=== PATIENT | female | born 1975 | race Caucasian/White ===

== ENCOUNTER 2017-02-13 05:42 | Emergency (ER) | payer MEDICAID, OTHER ==
[~2017-02-13] VITALS: Ht 157.5 cm; Wt 85.8 kg
[~2017-02-13 05:42] MED LIST: CALC600T5 PO; IBUP-1542 PO; METF500T3 PO; PREN1TAB62 PO
[2017-02-13 05:46] VITALS: Ht 157.5 cm; Wt 85.8 kg
[2017-02-13] MEDS ORDERED: ONDANSETRON 4 MG INJ IV STA (06:11)
[2017-02-13] MEDS ORDERED: FAMOTIDINE 20 MG TAB PO STA (06:11)
[2017-02-13] MEDS ORDERED: morphine 4 MG/ML VIAL IV STA (06:11)
--- NOTE | 2017-02-13 06:24 | ERD ---
ER Documentation Chief Complaint Chief Complaint RUQ pain radiating to back since 02/12/17 2200 HPI This is a 41-year-old female who presents the emergency department today complaining of upper abdominal pain that goes around her back and nausea that started 1030 last night. Patient states this is happened to her one time in the past back in March when she was with her child. Denies any fevers or chills. She has not taken any medication for the pain. ROS All systems reviewed and are negative except as per history of present illness. Medications Home Meds Active Scripts Famotidine* (Pepcid*) 20 Mg Tablet, 20 MG PO BID for 10 Days, TAB Prov:EVIE MEDINA PA-C 02/13/17 Ondansetron Hcl* (Zofran*) 4 Mg Tablet, 4 MG PO Q6H for NAUSEA AND/OR VOMITING, #30 TAB Prov:EVIE MEDINA PA-C 02/13/17 Naproxen* (Naprosyn*) 500 Mg Tablet, 500 MG PO BID Y for PAIN AND/OR INFLAMMATION, #30 TAB Prov:EVIE MEDINA PA-C 02/13/17 Hydrocodone/Acetaminophen ([place] 5-325 Tablet) 1 Each Tablet, 1 TAB PO Q6H Y for PAIN, #10 TAB Prov:EVIE MEDINA PA-C 02/13/17 Metformin* (Glucophage* XR) 500 Mg Tab.sr.24h, 500 MG PO BID WITH MEALS, #120 3 Refills Prov:CATALINA CORDERO MD 03/22/16 Ibuprofen* (Ibuprofen*) 600 Mg Tablet, 600 MG PO Q6, #20 TAB 0 Refills Prov:CATALINA CORDERO MD 03/22/16 Reported Medications Calcium Carbonate (CALCIUM) 600 Mg Tablet, 600 MG PO, TAB 03/19/16 Vit-Iron Fumarate-FA ( Vitamin Tablet) 1 Each Tablet, 1 TAB PO DAILY, TAB 03/19/16 Allergies Allergies: Coded Allergies: No Known Allergy (Unverified , 02/13/17) Physical Exam Vitals Vital Signs Date Time Temp Pulse Resp B/P Pulse Ox O2 Delivery O2 Flow Rate FiO2 02/13/17 05:46 98.3 70 16 143/85 98 Physical Exam Const: NAD Head: Atraumatic Eyes: Normal Conjunctiva ENT: Normal External Ears, Nose and Mouth. Neck: Full range of motion..~ No meningismus. Resp: Clear to auscultation bilaterally Cardio: Regular rate and rhythm, no murmurs Abd: Soft, gastric and right upper quadrant pain non distended. Normal bowel sounds no lower abdominal pain. No tenderness at McBurney's. Skin: No petechiae or rashes Back: No midline or flank tenderness Ext: No cyanosis, or edema Neur: Awake and alert Psych: Normal Mood and Affect Result Diagram: 02/13/1762402/13/17624 Results 24 hrs Laboratory Tests Test 02/13/17 06:25 White Blood Count 9.310^3/ul Red Blood Count 5.0910^6/ul Hemoglobin 14.9g/dl Hematocrit 43.8% Mean Corpuscular Volume 86.1fl Mean Corpuscular Hemoglobin 29.3pg Mean Corpuscular Hemoglobin Concent 34.0g/dl Red Cell Distribution Width 16.3% Platelet Count 61560^3/UL Mean Platelet Volume 11.9fl Neutrophils % 67.0% Lymphocytes % 22.9% Monocytes % 7.8% Eosinophils % 1.7% Basophils % 0.3% Nucleated Red Blood Cells % 0.0/100WBC Neutrophils # 6.210^3/ul Lymphocytes # 2.110^3/ul Monocytes # 0.710^3/ul Eosinophils # 0.210^3/ul Basophils # 0.010^3/ul Nucleated Red Blood Cells # 0.010^3/ul Urine Color YELLOW Urine Clarity SLIGHTLY CLOUDY Urine pH 8.0 Urine Specific [place] 1.027 Urine Ketones NEGATIVEmg/dL Urine Nitrite NEGATIVEmg/dL Urine Bilirubin NEGATIVEmg/dL Urine Urobilinogen NEGATIVEmg/dL Urine Leukocyte Esterase TRACELeu/ul Urine Microscopic RBC 1/HPF Urine Microscopic WBC 3/HPF Urine Squamous Epithelial Cells FEW/HPF Urine Hemoglobin NEGATIVEmg/dL Urine Glucose NEGATIVEmg/dL Urine Total Protein 1+mg/dl Sodium Level 142mmol/L Potassium Level 4.3mmol/L Chloride Level 106mmol/L Carbon Dioxide Level 23mmol/L Anion Gap 17 Blood Urea Nitrogen 11mg/dl Creatinine 0.63mg/dl Glucose Level 147mg/dl Calcium Level 9.0mg/dl Total Bilirubin 0.7mg/dl Direct Bilirubin 0.00mg/dl Indirect Bilirubin 0.7mg/dl Aspartate Amino Transf (AST/SGOT) 91IU/L Alanine Aminotransferase (ALT/SGPT) 113IU/L Alkaline Phosphatase 131IU/L Total Protein 8.4g/dl Albumin 4.7g/dl Globulin 3.70g/dl Albumin/Globulin Ratio 1.27 Lipase 64U/L Current Medications Medications (Trade) Dose Ordered Sig/Van Route PRN Reason Start Time Stop Time Status Last Admin Dose Admin Morphine Sulfate (morphine) 4 mg ONCE STAT IV 02/13/17 06:11 02/13/17 06:14 DC 02/13/17 06:29 Ondansetron HCl (Zofran Inj) 4 mg ONCE STAT IV 02/13/17 06:11 02/13/17 06:14 DC 02/13/17 06:28 Famotidine (Pepcid) 20 mg ONCE STAT PO 02/13/17 06:11 02/13/17 06:14 DC 02/13/17 06:29 DIAGNOSTIC IMAGING REPORT Patient: TEA ESQUIVEL : 1975 Age: 41 Sex: F MR #: [id number] DOS: 02/13/17 0611 Ordering MD: EVIE MEDINA PA-C Location: [facility] Room/Bed: PROCEDURE: US Abdomen (right upper quadrant). CLINICAL INDICATION: Abdominal pain. TECHNIQUE: Multiple real-time longitudinal and transverse images of the right upper quadrant of the abdomen were acquired utilizing a curved array transducer. Images were reviewed on a high-resolution PACS workstation. COMPARISON: None FINDINGS: The liver is normal in size and demonstrates increased echogenicity. No focal intrahepatic mass is identified. The gallbladder wall appears mildly thickened. No gallstones are seen. No intra or extrahepatic biliary dilatation is seen. The common bile duct measures 5.4 mm in maximal dimension. The portal and hepatic veins are patent demonstrating normal directional flow. The visualized portions of the pancreas are unremarkable with obscuration of the tail of the pancreas. No free fluid is identified. The right kidney measures 10.0 cm in length. There is normal echogenicity within the right kidney. There is no perinephric fluid collection. No hydronephrosis, mass, or calculus is seen. IMPRESSION: 1. Mild gallbladder wall thickening. No gallstones are seen. 2. The common bile duct is upper limits of normal for patient's age measuring 5.4 mm in diameter. 3. Hepatic steatosis. RPTAT: HH .Priya Abdi MD, Date Time Electronically viewed and signed by .Priya Abdi MD, on 02/13/2017 07 :13 .G/ CC: EVIE MEDINA PA-C Procedures/[facility] This is a 41-year-old female who presents the emergency department today complaining of abdominal pain and vomiting that started last night. On physical exam patient had epigastric and right upper quadrant tenderness. Given this I did obtain laboratory workup as well as imaging. Laboratory workup shows no elevated white blood cell count. She is not anemic. Platelets are within normal limits. Electrolytes are within normal limits. Glucose is within normal limits. Liver enzymes are mildly elevated. Lipase is within normal limits. Bilirubin is within normal limits. UA shows trace leukocyte esterase negative nitrites. Urine test is negative Right Upper quadrant ultrasound mild gallbladder wall thickening. There are no gallstones seen. There is no intra-or extrahepatic biliary dilatation seen. Common bile duct measures 5.4 mm in maximal dimension. There is no free fluid. There is hepatic steatosis. Symptoms at this time consistent with gallbladder wall thickening and elevated liver enzymes. At this time there is no evidence to suggest acute surgical abdomen. Patient was given Zofran, morphine, and Pepcid and pain resolved. Will be given a prescription for short course of [place], Naprosyn, Zofran and Pepcid for home. I have explained all results to the patient At this time the patient is stable for discharge and outpatient management. Patient should follow up with their PCP in the next 1-2 days. Patient was given referral information for general surgery consult. they may return to the emergency department sooner for any persistent or worsening of symptoms. Patient understood and agreed with the plan. Discussed the patient with Dr. Cabrera and he is in agreement with the plan. Departure Diagnosis: Primary Impression: Abdominal pain Abdominal location: right upper quadrant Qualified Code: R10.11 - Right upper quadrant abdominal pain Additional Impression: Elevated liver enzymes Condition: EVIE Rueda PA-C Feb 13, 2017 06:24
[2017-02-13 06:37] LABS: BASOPHILS % 0.3 % (0.0-2.0); EOSINOPHILS # 0.2 10^3/ul (0.0-0.5); EOSINOPHILS % 1.7 % (0.0-7.0); HEMATOCRIT 43.8 % (37.0-47.0); HEMOGLOBIN 14.9 g/dl (12.0-16.0); LYMPHOCYTES # 2.1 10^3/ul (0.8-2.9); LYMPHOCYTES % 22.9 % (15.0-51.0); MEAN CORPUSCULAR HEMOGLOBIN 29.3 pg (29.0-33.0); MEAN CORPUSCULAR VOLUME 86.1 fl (82.0-101.0); MEAN PLATELET VOLUME 11.9 fl (7.4-10.4); MONOCYTE # 0.7 10^3/ul (0.3-0.9); MONOCYTES % 7.8 % (0.0-11.0); NEUTROPHIL # 6.2 10^3/ul (1.6-7.5); PLATELET COUNT 231 10^3/UL (140-415); RED BLOOD COUNT 5.09 10^6/ul (4.20-5.40); RED CELL DISTRIBUTION WIDTH 16.3 % (11.5-14.5); WHITE BLOOD COUNT 9.3 10^3/ul (4.8-10.8)
[2017-02-13 06:54] LABS: ALBUMIN 4.7 g/dl (3.3-4.9); ALBUMIN/GLOBULIN RATIO 1.27; BILIRUBIN,INDIRECT 0.7 mg/dl (0-1.1); BILIRUBIN,TOTAL 0.7 mg/dl (0.2-1.3); CREATININE 0.63 mg/dl (0.44-1.00); POTASSIUM 4.3 mmol/L (3.5-5.1); TOTAL PROTEIN 8.4 g/dl (6.1-8.1)
[2017-02-13 06:55] LABS: ADD UMIC YES; UR ASCORBIC ACID NEGATIVE (NEGATIVE); UR BILIRUBIN (Dip) NEGATIVE (NEGATIVE); UR BLOOD (Dip) NEGATIVE (NEGATIVE); UR CLARITY SLIGHTLY CLOUDY (CLEAR); UR COLOR YELLOW (YELLOW); UR GLUCOSE (Dip) NEGATIVE (NEGATIVE); UR KETONES (Dip) NEGATIVE (NEGATIVE); UR LEUKOCYTE ESTERASE (Dip) TRACE Leu/ul (NEGATIVE); UR NITRITE (Dip) NEGATIVE (NEGATIVE); UR RBC 1 /HPF (0-5); UR SPECIFIC GRAVITY (Dip) 1.027 (1.003-1.030); UR SQUAMOUS EPITHELIAL CELL FEW /HPF (FEW); UR TOTAL PROTEIN (Dip) 1+ mg/dl (NEGATIVE); UR UROBILINOGEN (Dip) NEGATIVE (NEGATIVE)
--- NOTE | 2017-02-13 07:14 | RADRPT ---
PROCEDURE: US Abdomen (right upper quadrant). CLINICAL INDICATION: Abdominal pain. TECHNIQUE: Multiple real-time longitudinal and transverse images of the right upper quadrant of th e abdomen were acquired utilizing a curved array transducer. Images were reviewed on a high-resoluti on PACS workstation. COMPARISON: None FINDINGS: The liver is normal in size and demonstrates increased echogenicity. No focal intrahepatic mass is identified. The gallbladder wall appears mildly thickened. No gallstones are seen. No intra or ext rahepatic biliary dilatation is seen. The common bile duct measures 5.4 mm in maximal dimension. Th e portal and hepatic veins are patent demonstrating normal directional flow. The visualized portions of the pancreas are unremarkable with obscuration of the tail of the pancreas. No free fluid is id entified. The right kidney measures 10.0 cm in length. There is normal echogenicity within the right kidney. There is no perinephric fluid collection. No hydronephrosis, mass, or calculus is seen. IMPRESSION: 1. Mild gallbladder wall thickening. No gallstones are seen. 2. The common bile duct is upper limits of normal for patient's age measuring 5.4 mm in diameter. 3. Hepatic steatosis. RPTAT: HH .Priya Abdi MD, MD Date Time Electronically viewed and signed by .Priya Abdi MD, on 02/13/2017 07:13 .G/
[2017-02-13] MEDS ORDERED: HYDR-906 PO (07:34)
[2017-02-13] MEDS ORDERED: NAPR-260 PO (07:34)
[2017-02-13] MEDS ORDERED: ONDA4TAB8 PO (07:35)
[2017-02-13] MEDS ORDERED: FAMO-96 PO (07:36)
[2017-02-13 07:47] VITALS: BP 124/75; PULSE 72; RESP 19; TEMP 98.4
== END 2017-02-13 07:48 | disposition home or self-care (01) ==
LOC: FTE 05:42
DX: R10.11 Right upper quadrant pain (principal); R74.8 Abnormal levels of other serum enzymes
CPT/HCPCS: 76705; 80053; 81001; 83690; 85025; J2270; J2405; Z7610; 36415; 96374; 96375

== ENCOUNTER 2017-05-20 10:08 | Emergency (ER) | END 2017-05-20 14:21 | disposition home or self-care (01) ==